=== PATIENT | female | born 1975 | race Caucasian/White ===

== ENCOUNTER → 2017-02-17 | Outpatient (CLI) | payer SELFPAY ==
--- NOTE | 2017-02-17 18:40 | REP ---
PA and lateral chest: There are no comparisons. The lung maldonado are clear. Cardiac size is normal. The jose, mediastinum, and bony thorax are unremarkable. There are surgical clips in the soft tissues at the base of the neck on the left. Impression: No acute cardiopulmonary findings. Signed by Brian Mcgee MD 02/17/2017 06:32 P
== END ==
LOC: M LRY 17:32
PROVIDERS: ATTEND Physician Assistant
DX: R05 Cough (principal)

== ENCOUNTER → 2017-03-03 | Outpatient (CLI) | payer SELFPAY ==
[~2017-03-03] MED LIST: E-Z-GAS II EFFERVESCENT PACKET (SODIUM BICARB./CITRIC ACID/SIMETHICONE) As Ordered ONE; E-Z-HD 98% w/w 340GM SUSP BTL As Ordered ONE; E-Z-PAQUE 96% w/w SUSP 176GM BTL As Ordered ONE
--- NOTE | 2017-03-03 21:16 | REP ---
Esophagram The procedure was performed under the direct supervision of Dr. Mitchell. The images were reviewed with Dr. Mitchell. 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 The superior mediastinal structures are midline. The heart size is within normal limits. The lungs are clear. Note is made of surgical clips noted in the left lateral neck consistent with the patient's history of lymph node removal. Liquid barium and gas producing granules were given in the erect position as well as liquid barium in the prone oblique positions in order to perform a double contrast esophagram examination. The oral and pharyngeal stages of deglutition are unremarkable. Esophageal transport is prompt and efficient and there is no esophagitis, stricture, mucosal ring or hiatal hernia. There is gastroesophageal reflux demonstrated to the level of the thoracic inlet. Impression: There is gastroesophageal reflux demonstrated to the level of the thoracic inlet. Otherwise unremarkable double contrast esophagram examination. 41 seconds of fluoro time was utilized for this procedure. Reviewed by TAMELA Del Castillo 03/03/2017 05:05 PSigned by Vishal Mitchell MD 03/03/2017 09:08 P
== END ==
LOC: M RAD 10:44
PROVIDERS: ATTEND Internal Medicine Gastroenterology
DX: K21.9 Gastro-esophageal reflux disease without esophagitis (principal); R13.10 Dysphagia, unspecified

== ENCOUNTER 2017-03-18 11:30 | Outpatient (CLI) | payer SELFPAY ==
[~2017-03-18] VITALS: Ht 162.6 cm; Wt 56.2 kg
[~2017-03-18 11:30] MED LIST changes: -E-Z-GAS II EFFERVESCENT PACKET (SODIUM BICARB./CITRIC ACID/SIMETHICONE) As Ordered ONE; -E-Z-HD 98% w/w 340GM SUSP BTL As Ordered ONE; -E-Z-PAQUE 96% w/w SUSP 176GM BTL As Ordered ONE; +LIDOCAINE 2% INJ 100 MG/5 ML SDV (FOR ANES.) As Ordered ONE; +PROPOFOL 200 MG/20 ML VIAL As Ordered ONE
[2017-03-18] MEDS ORDERED: NS 1,000 ML IV ONE (12:00)
--- NOTE | 2017-03-18 13:46 | ROOR ---
Patient Name: Indio Ybarra Procedure Date: 03/18/2017 1:16 PM Date of : 1975 Age: 41 Room: [facility] Gender: Female Note Status: Finalized Procedure: Upper GI endoscopy Indications: Dysphagia Providers: Teodoro Mccurdy MD Referring MD: 1. No Referring Physician 1. No Referring Physician, Admin. Requesting Provider: Medicines: Monitored Anesthesia Care Complications: No immediate complications. Procedure: Pre-Anesthesia Assessment: - Prior to the procedure, a History and Physical was performed, and patient medications and allergies were reviewed. The patient is competent. The risks and benefits of the procedure and the sedation options and risks were discussed with the patient. All questions were answered and informed consent was obtained. Patient identification and proposed procedure were verified by the physician, the nurse and the physical therapy technician in the procedure room. Mental Status Examination: alert and oriented. Airway Examination: normal oropharyngeal airway and neck mobility. Respiratory Examination: clear to auscultation. CV Examination: normal. Prophylactic Antibiotics: The patient does not require prophylactic antibiotics. Prior Anticoagulants: The patient has taken no previous anticoagulant or antiplatelet agents. ASA Grade Assessment: II - A patient with mild systemic disease. After reviewing the risks and benefits, the patient was deemed in satisfactory condition to undergo the procedure. The anesthesia plan was to use monitored anesthesia care (MAC). Immediately prior to administration of medications, the patient was re-assessed for adequacy to receive sedatives. The heart rate, respiratory rate, oxygen saturations, blood pressure, adequacy of pulmonary ventilation, and response to care were monitored throughout the procedure. The physical status of the patient was re-assessed after the procedure. The Endoscope was introduced through the mouth, and advanced to the second part of duodenum. The upper GI endoscopy was accomplished without difficulty. The patient tolerated the procedure well. Findings: One tongue of salmon-colored mucosa was present from 39 to 41 cm. No other visible abnormalities were present. The maximum longitudinal extent of these esophageal mucosal changes was 2 cm in length. Biopsies were taken with a cold forceps for histology. Verification of patient identification for the specimen was done by the physician and nurse using the patient's name, date and medical record number. Estimated blood loss was minimal. The exam of the esophagus was otherwise normal. Two biopsies were obtained with cold forceps for evaluation of eosinophilic esophagitis in the lower third of the esophagus, as well as three biopsies in the middle third of the esophagus. Diffuse moderately erythematous mucosa without bleeding was found in the gastric antrum. Biopsies were taken with a cold forceps for Helicobacter pylori testing. The duodenal bulb and second portion of the duodenum were normal. Impression: - [place]-colored mucosa suspicious for short-segment Hyman's esophagus. Biopsied. - Erythematous mucosa in the antrum. Biopsied. - Normal duodenal bulb and second portion of the duodenum. - Biopsy performed in the lower third of the esophagus and in the middle third of the esophagus. Recommendation: - Patient has a contact number available for emergencies. The signs and symptoms of potential delayed complications were discussed with the patient. Return to normal activities tomorrow. Written discharge instructions were provided to the patient. - Resume previous diet. - Continue present medications. - Use a proton pump inhibitor PO daily ( to be taken on empty stomach - 1/2 hour prior to breakfast) - duration to be determined based on pathology results.. - Follow an antireflux regimen. - Await pathology results. - Telephone GI clinic for pathology results in 1 week. - Repeat upper endoscopy in 1 year for surveillance. Teodoro Mccurdy MD Teodoro Mccurdy MD 03/18/2017 1:46:26 PM This report has been signed electronically. Number of Addenda: 0 Note Initiated On: 03/18/2017 1:16 PM Estimated Blood Loss: Estimated blood loss was minimal.
[2017-03-18 14:13] VITALS: BP 116/64
== END 2017-03-18 14:13 | disposition home or self-care (01) ==
LOC: M OPP 11:30
PROVIDERS: ATTEND Internal Medicine Gastroenterology
DX: R13.10 Dysphagia, unspecified (principal); K22.8 Other specified diseases of esophagus; K31.89 Other diseases of stomach and duodenum; R05 Cough; Z88.8 Allergy status to other drugs, medicaments and biological substances; Z80.3 Family history of malignant neoplasm of breast